=== PATIENT | male | born 1970 | race Caucasian/White ===

== ENCOUNTER → 2021-09-13 09:30 | Outpatient (CLI) | payer OTHER, SELFPAY ==
[2021-09-13 12:43] LABS: COVID19 -Nasal RAPID Negative (Negative)
== END ==
PROVIDERS: PCP Family Medicine; Visit Provider Nurse Practitioner Family
DX: Z20.822 Contact with and (suspected) exposure to COVID-19 (principal)
CPT/HCPCS: 87635

== ENCOUNTER 2021-09-15 11:55 | Day surgery (SDC) | payer OTHER, SELFPAY ==
--- NOTE | 2021-09-15 12:10 | P.HP_ITS ---
History of Present Illness History of Present Illness Chief complaint: SCREENING COLONOSCOPY Narrative: 50 Years Old Male seen today for follow up consideration of a screening colonoscopy. There have been no lower GI symptoms suggesting disease such as change in bowel habits, bleeding, abdominal pain or anemia. There's been no family history of colon cancer or colon polyps. Overall health issues have been stable, including no major cardiac events for at least 6 weeks. 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 Grandmother No problems noted. Mother No problems noted. Grandfather No problems noted. Grandmother No problems noted. Sister No problems noted. Sister No problems noted. Tobacco & Substance use: Smoking Status Never smoker alcohol intake never Meds Home Medications and Allergies Home Medications Medication Instructions Recorded Confirmed Type fluticasone furoate 27.5 1 spray NASAL BID #9.1 ml 09/30/18 Rx mcg/actuation nasal spray,suspension (Flonase Sensimist) Allergies Allergy/AdvReac Type Severity Reaction Status Date / Time No Known Drug Allergies Allergy Verified 09/15/21 12:08 Review of Systems Review of Systems Narrative: All remaining ROS were reviewed and negative except as addressed. Exam Narrative Exam Narrative: GENERAL: Alert and oriented, appearing stated age and in no acute distress. HEENT: Head normocephalic/atraumatic. Extraocular movements intact. LUNGS: Clear to ausculation bilaterally, no wheezes, rhonchi or rales. CV: Normal S1 and S2 with regular rate and rhythm, no audible murmurs, rubs or gallops. ABDOMEN: Soft, non-tender, non-distended, no organomegaly. Positive bowel sounds. EXTREMITIES: No clubbing, cyanosis, or edema. NEURO: Cranial nerves II through XII grossly intact, no focal deficits. PSYCH: Alert and oriented x 3. SKIN: No concerning lesions. Assessment & Plan Assessment & Plan narrative: 1. Screening for colon cancer Plan for colonoscopy. The nature and character of the procedure as well as anticipated results were discussed. The possibility of not completing the procedure was also discussed. Possible complications including aspiration pneumonia, bleeding, perforation and reaction to medications either for sedation or preparation and missed lesions were discussed. Questions were answered and proceeding to the colonoscopy was elected. Informed consent signed. 2. Alcohol abuse, in remission Due to patient's history of alcohol abuse, would like to try a colonoscopy without sedation. Will proceed with Versed/fentanyl if he is unable to tolerate procedure. I sincerely appreciate the referral allowing me to participate in this patient's care. Please contact me with any questions or concerns.
[2021-09-15 12:13] VITALS: BP 128/78; PULSE 97; RESP 14; TEMP 36.4; O2SAT 95; BMI 26.3
--- NOTE | 2021-09-15 12:15 | PM.OP.COLON ---
Operative Date/Time/Diagnoses Date of procedure: 09/15/21 Procedure Notes SCOAP/Timeout: 1:03 p.m. Procedure in detail: ENDOSCOPIST: Cee Macias MD Sedation RN: Krish Hooks RN Procedure start time: 1:09 p.m. Procedure end time: 1:22 p.m. PROCEDURE: Colonoscopy INDICATIONS: 1. Screening for colon cancer MEDICATION: Levsin 0.125 mg sublingual, incremental doses of Versed and fentanyl until appropriate level sedation achieved. ASA CLASS: 2 CECAL WITHDRAWAL TIME: 7 minutes COMPLICATIONS: None. EXTENT OF PROCEDURE: Cecum. QUALITY OF PREP: Good with portions of liquid stool. PROCEDURE: Prior to insertion of the colonoscope, a digital rectal examination was accomplished with circumferential palpation of the distal rectal mucosa without significant findings being noted. The high-definition colonoscope was passed into the rectum in the usual fashion and advanced over to the cecum without difficulty. The ileocecal valve, appendiceal stoma, and medial wall all could be inspected and no abnormalities were seen. ASCENDING COLON: As the colonoscope was withdrawn, care was taken to expose and inspect the haustral folds and no abnormalities were seen. HEPATIC FLEXURE: Normal, no polyps, diverticula or other abnormalities. TRANSVERSE COLON: Normal, no polyps, diverticula or other abnormalities. DESCENDING COLON: Normal, no polyps, diverticula or other abnormalities. SIGMOID COLON: Normal, no polyps, diverticula or other abnormalities. RECTUM: Normal. J maneuver was produced. There was no significant perianal disease. The J maneuver was broken. The remainder of the rectum was inspected and there was no external hemorrhoid disease. The scope was withdrawn. IMPRESSION: 1. Normal colonoscopy PLAN: 1. Repeat colonoscopy in 10 years. The possibility of a missed lesion including a malignancy has been discussed with the patient previously. Potential alarm symptoms have been discussed and should be reported immediately.
[2021-09-15] MEDS: LACTATED RINGERS 1,000 ML 200 ML IV (12:20)
--- NOTE | 2021-09-15 13:30 | SUR.PHASEII ---
Pt to Phase II after colonoscopy without sedation. Report from MAEVE Emerson.
[2021-09-15 13:31] VITALS: BP 117/81; PULSE 72; RESP 12; TEMP 36.3; O2SAT 97
== END 2021-09-15 13:42 | disposition home or self-care (01) ==
PROVIDERS: PCP Family Medicine; Referring Provider Student in an Organized Health Care Education/Training Program; Visit Provider Student in an Organized Health Care Education/Training Program
PROC: 0DJD8ZZ Inspection of Lower Intestinal Tract, Via Natural or Artificial Opening Endoscopic (ICD-10-PCS; CPT 45378; principal; 2021-09-15 13:00)
DX: Z12.11 Encounter for screening for malignant neoplasm of colon (principal)
CPT/HCPCS: 45378